=== PATIENT | female | born 2000 | race Two or more races ===

== ENCOUNTER 2021-09-09 00:09 | Emergency (ER) | payer BC, MEDICAID ==
[~2021-09-09] VITALS: Ht 162.6 cm; Wt 52.6 kg
[2021-09-09 01:24] LABS: Basophils # (auto) 0 10 ^3/uL (0-0.2); Basophils % (auto) 0.4 % (0.0-2.0); Eosinophils # (auto) 0 10 ^3/uL (0-0.8); Eosinophils % (auto) 0.1 % (0.0-7.0); Hematocrit 38.7 % (36.0-46.0); Hemoglobin 13.2 g/dL (12.2-16.2); Lymphocytes # (auto) 1.1 10 ^3/uL (0.4-5.4); Lymphocytes % (auto) 13.3 % (10.0-50.0); Mean Corpuscular Hemoglobin 28.8 pg (28.0-32.0); Mean Corpuscular Hgb Conc. 34.1 g/dL (32.0-36.0); Mean Corpuscular Volume 84.4 fL (80.0-100.0); Monocytes # (auto) 0.5 10 ^3/uL (0-1.3); Monocytes % (auto) 6.3 % (0.0-12.0); Neutrophils # (auto) 6.8 10 ^3/uL (1.6-8.6); Neutrophils % (auto) 79.9 % (37.0-80.0); Red Blood Cells 4.59 10^6/uL (4.0-5.20); White Blood Cell 8.6 10^3/uL (4.4-10.8)
[2021-09-09 01:54] LABS: Albumin 4.2 g/dL (3.4-5.0); BUN/Creatinine Ratio 13.8; Calcium 9.5 mg/dL (8.5-10.1); Potassium 3.7 mmol/L (3.5-5.1)
[2021-09-09 01:58] LABS: Bilirubin, Total 0.4 mg/dL (0.2-1.0); Total Protein 7.6 g/dL (6.4-8.2)
[2021-09-09 02:22] LABS: Urine Bacteria NONE SEEN /hpf (None Seen); Urine Blood Negative /uL (Negative); Urine Specific Gravity 1.007 (1.001-1.035); Urine WBC 2 /hpf (0 - 5)
[2021-09-09 07:00] VITALS: BP 139/72
[2021-09-09] MEDS ORDERED: LORazepam 2MG/ML-1ML VIAL IV ONE (07:30)
== END 2021-09-09 07:49 | disposition home or self-care (01) ==
LOC: EDBD 00:09 → ER 00:12
DX: F41.9 Anxiety disorder, unspecified (principal)
CPT/HCPCS: 36415; 71045; 80053; 81001; 84443; 84484; 85025; 93005